=== PATIENT | female | born 1965 | race Caucasian/White ===

== ENCOUNTER 2017-08-14 02:22 | Emergency (ER) | payer OTHER ==
--- NOTE | 2017-08-14 02:50 | ERPHSYRPT ---
- History of Present Illness Source: patient Exam Limitations: no limitations Patient Subjective Stated Complaint: Pt arrives to ER escorted by Police with c/ o self-inflicted laceration to left wrist in an attempt to harm herself although states is not currently suicidal or homicidal. Pt admits to drinking 3 beers tonight. denies drug use. pt is currently laughing and joking with staff and officer and does not appear to be in any distress at this time. wrist dressed with gauze wrap. Triage Nursing Assessment: see above Timing/Duration: today (1:30 AM) Severity: moderate Modifying Factors: Improves With: nothing Associated Symptoms: rash, No nausea, No vomiting, No abdominal pain, No shortness of breath, No heartburn, No diaphoresis, No cough, No chills, No chest pain, No fever, No headaches, No loss of appetite, No malaise, No syncope , No seizure, No weakness Hx Tetanus, Diphtheria Vaccination/Date Given: No <YOANDY BOWMAN - Last Filed: 08/14/17 07:04> <EAN WATERMAN - Last Filed: 08/14/17 13:35> - History of Present Illness Time Seen by Provider: 08/14/17 02:59 Physician History: This is a 52-year-old white female arrives with complaint of laceration to her left wrist at approximately 1:30 PM. According to the patient she decided she wanted to harm herself at about 1:30 PM and so she lacerated her left wrist. Patient states that she has had 3 alcoholic beverages tonight she denies any illicit drug use She states she is not feeling homicidal or suicidal at this time. Past medical history includes depression Past surgical history includes tonsillectomy Social history includes tobacco use patient states she usually doesn't drink but drank 3 beers tonight Patient denies illicit drug use. (YOANDY BOWMAN) Allergies/Adverse Reactions: No Known Drug Allergies Allergy (Unverified 08/14/17 02:38) Home Medications: Albuterol Sulfate [Ventolin Hfa] 2 puffs OINH Q4H PRN 08/14/17 [History] Alendronate Sodium 70 mg [Fosamax 70 MG] 70 mg PO DAILY 08/14/17 [History] Atorvastatin Calcium [Lipitor 40Mg] 40 mg PO DAILY 08/14/17 [History] Calcium Carbonate/Vitamin D3 [Calcium 600 + Vit D 400 Tablet] 1 dose PO DAILY [History] Cyanocobalamin (Vitamin B-12) [Vitamin B12] 5,000 mg PO DAILY 08/14/17 [History] Eszopiclone [Lunesta] 3 mg PO DAILY 08/14/17 [History] Hydroxyzine Pamoate [Vistaril] 50 mg PO DAILY 08/14/17 [History] Lisinopril [Prinivil] 10 mg PO DAILY 08/14/17 [History] Omeprazole [Prilosec] 40 mg PO DAILY 08/14/17 [History] Prazosin HCl [Minipress] 1 mg PO DAILY 08/14/17 [History] Venlafaxine HCl ER 37.5 mg [Effexor ER 37.5 MG] 37.5 mg PO DAILY 08/14/17 [History] Venlafaxine HCl [Effexor Xr] 75 mg PO DAILY 08/14/17 [History] - Review of Systems Constitutional: No Fever, No Chills Eyes: No Symptoms Ears, Nose, & Throat: No Symptoms Respiratory: No Cough, No Dyspnea Cardiac: No Chest Pain, No Edema, No Syncope Abdominal/Gastrointestinal: No Abdominal Pain, No Nausea, No Vomiting, No Diarrhea Genitourinary Symptoms: No Dysuria Musculoskeletal: No Back Pain, No Neck Pain Skin: Other (laceration left wrist self-inflicted) Neurological: No Dizziness, No Focal Weakness, No Sensory Changes Psychological: No Symptoms Endocrine: No Symptoms All Other Systems: Reviewed and Negative <YOANDY BOWMAN - Last Filed: 08/14/17 07:04> - Past Medical History Pertinent Past Medical History: Yes Psycho-Social History: Depression - Past Surgical History Past Surgical History: Yes - Social History Smoking Status: Current every day smoker Exposure to second hand smoke: Yes Drug Use: none Patient Lives Alone: No - Female History Hx Now: No <YOANDY BOWMAN - Last Filed: 08/14/17 07:04> - Physical Exam General Appearance: other (well-developed well-nourished white female alert, oriented x 3, pleasant and cooperative to examination occasionally laughing inappropriately) Eye Exam: PERRL/EOMI, eyes nml inspection Ears, Nose, Throat Exam: normal ENT inspection, TMs normal, pharynx normal, moist mucous membranes Neck Exam: normal inspection, non-tender, supple, full range of motion Respiratory Exam: normal breath sounds, lungs clear, No respiratory distress Cardiovascular Exam: regular rate/rhythm, normal heart sounds, normal peripheral pulses Gastrointestinal/Abdomen Exam: soft, normal bowel sounds, No tenderness, No mass Back Exam: normal inspection, normal range of motion, No CVA tenderness, No vertebral tenderness Extremity Exam: normal range of motion, other (laceration left anterior wrist) Neurologic Exam: alert, oriented x 3, cooperative, normal mood/affect, nml cerebellar function, nml station & gait, sensation nml, No motor deficits Skin Exam: other (laceration left anterior wrist 1.5 cm) SpO2 Interpretation: normal (96%) SpO2: 96 Oxygen Delivery: Room Air <YONADY BOWMAN - Janes Filed: 08/14/17 07:04> - Nursing Vital Signs Nursing Vital Signs: Initial Vital Signs Temperature 97.4 F 08/14/17 02:29 Pulse Rate 87 08/14/17 02:29 Respiratory Rate 18 08/14/17 02:29 Blood Pressure 132/77 08/14/17 02:29 O2 Sat by Pulse Oximetry 96 08/14/17 02:29 Pain Scale Pain Intensity 0 - Course Nursing assessment & vital signs reviewed: Yes EKG Interpreted by Me: RATE (69 bpm), Sinus Rhythm, Other (EKG, sinus rhythm, 69 bpm, axisSI/QIII pattern, poor anterior R-wave progression, no acute ST or t wave changes noted>) <YOANDY BOWMAN Filed: 08/14/17 07:04> Ordered Tests: Active Orders 24 hr Category Date Time Status EKG-ER Only STAT Care 08/14/17 02:45 Active IV Insertion STAT Care 08/14/17 04:10 Active Psychiatric Evaluation STAT Care 08/14/17 03:28 Active Wound Care STAT Care 08/14/17 02:52 Active Regular Diet Diet 08/14/17 Breakfast Active Regular Diet Diet 08/14/17 Lunch Active ACETAMINOPHEN Stat Lab 08/14/17 03:32 Completed ACETAMINOPHEN Stat Lab 08/14/17 06:29 Completed Alcohol [ETHYL ALCOHOL] Stat Lab 08/14/17 10:59 Completed CBC W DIFF Stat Lab 08/14/17 03:32 Completed CMP Stat Lab 08/14/17 03:32 Completed ETHYL ALCOHOL Stat Lab 08/14/17 03:32 Completed ETHYL ALCOHOL Stat Lab 08/14/17 06:29 Completed HCG QUALITATIVE,SERUM Stat Lab 08/14/17 03:32 Completed Manual Differential NC Stat Lab 08/14/17 03:32 Completed SALICYLATE Stat Lab 08/14/17 03:32 Completed SALICYLATE Stat Lab 08/14/17 06:29 Completed UA W/RFX UR CULTURE Stat Lab 08/14/17 04:42 Completed Urine Triage Profile Stat Lab 08/14/17 04:42 Completed Medication Summary Discontinued Medications Generic Name Dose Route Start Last Admin Trade Name Freq PRN Reason Stop Dose Admin Diphtheria/Tetanus/Acell Pertussis 0.5 ml 08/14/17 02:53 08/14/17 03:23 Adacel Vial IM 08/14/17 02:54 0.5 ml .ONCE ONE Administration Diphtheria/Tetanus/Acell Pertussis Confirm 08/14/17 03:19 Adacel Vial Administered 08/14/17 03:20 Dose 0.5 ml IM .STK-MED ONE Sodium Chloride 1,000 mls @ 999 mls/hr 08/14/17 04:06 08/14/17 06:07 Sodium Chloride 0.9% 1000 Ml IV 08/14/17 05:06 Infused .Q1H1M STA Infusion Sodium Chloride Confirm 08/14/17 04:08 Sodium Chloride 0.9% 1000 Ml Administered 08/14/17 04:09 Dose 1,000 mls @ ud .ROUTE .STK-MED ONE Nicotine 21 mg 08/14/17 04:07 08/14/17 04:13 Nicoderm Cq 21 Mg TOP 08/14/17 04:08 21 mg STAT ONE Administration Pantoprazole Sodium 40 mg 08/14/17 10:26 08/14/17 10:35 Protonix 40mg Tablet PO 08/14/17 10:27 40 mg STAT ONE Administration Pantoprazole Sodium Confirm 08/14/17 10:33 Protonix 40mg Tablet Administered 08/14/17 10:34 Dose 40 mg .ROUTE .STK-MED ONE Lab/Rad Data: Laboratory Result Diagrams 08/14/17 03:32 08/14/17 03:32 Laboratory Results 08/14/17 08/14/17 08/14/17 Range/Units 10:59 06:29 04:42 WBC (4.0-10.5) K/mm3 RBC (4.1-5.4) M/mm3 Hgb (12.0-16.0) gm/dl Hct (35-47) % MCV (78-100) fl MCH (26-32) pg MCHC (32-36) g/dl RDW (11.5-14.0) % Plt Count (150-450) K/mm3 MPV (6-9.5) fl Absolute Granulocytes (1.4-6.9) Segmented Neutrophils (36.0-66.0) % Band Neutrophils (0.0-2.0) % Lymphocytes (Manual) (24-44) % Monocytes (Manual) (0.0-12.0) % Eosinophils (Manual) (0.00-3.0) % Platelet Estimate (NORMAL) RBC Morphology Sodium (137-145) mmol/L Potassium (3.5-5.1) mmol/L Chloride (98-107) mmol/L Carbon Dioxide (22-30) mmol/L Anion Gap (5-15) MEQ/L BUN (7-17) mg/dL Creatinine (0.52-1.04) mg/dL Estimated GFR ML/MIN Glucose (74-106) mg/dL Calcium (8.4-10.2) mg/dL Total Bilirubin (0.2-1.3) mg/dL AST (14-36) U/L ALT (0-35) U/L Alkaline Phosphatase (38-126) U/L Serum Total Protein (6.3-8.2) g/dL Albumin (3.5-5.0) g/dL Serum , Qual (Negative) Ur Collection Type Urine Color (YELLOW) Urine Appearance (CLEAR) Urine pH (5-6) Ur Specific Mcnary (1.005-1.025) Urine Protein (Negative) Urine Ketones (NEGATIVE) Urine Blood (0-5) Juan/ul Urine Nitrite (NEGATIVE) Urine Bilirubin (NEGATIVE) Urine Urobilinogen (0-1) mg/dL Ur Leukocyte Esterase (NEGATIVE) Urine Culture Reflexed (NO) Urine Glucose (NEGATIVE) mg/dL Salicylates 15.5 (2-20) mg/dL Urine Opiates Level NEGATIVE (NEGATIVE) Ur Methadone NEGATIVE (NEGATIVE) Acetaminophen < 10 L (10-30) ug/ml Urine Barbiturates NEGATIVE (NEGATIVE) Ur Phencyclidine (PCP) NEGATIVE (NEGATIVE) Urine Amphetamine NEGATIVE (NEGATIVE) U Benzodiazepine Level NEGATIVE (NEGATIVE) Urine Cocaine NEGATIVE (NEGATIVE) Urine Marijuana (THC) NEGATIVE (NEGATIVE) Ethyl Alcohol < 10 93 H (0-10) mg/dL Specimen Received 08/14/17 08/14/17 08/14/17 Range/Units 04:42 03:32 03:32 WBC (4.0-10.5) K/mm3 RBC (4.1-5.4) M/mm3 Hgb (12.0-16.0) gm/dl Hct (35-47) % MCV (78-100) fl MCH (26-32) pg MCHC (32-36) g/dl RDW (11.5-14.0) % Plt Count (150-450) K/mm3 MPV (6-9.5) fl Absolute Granulocytes (1.4-6.9) Segmented Neutrophils (36.0-66.0) % Band Neutrophils (0.0-2.0) % Lymphocytes (Manual) (24-44) % Monocytes (Manual) (0.0-12.0) % Eosinophils (Manual) (0.00-3.0) % Platelet Estimate (NORMAL) RBC Morphology Sodium 144 (137-145) mmol/L Potassium 3.6 (3.5-5.1) mmol/L Chloride 107 (98-107) mmol/L Carbon Dioxide 20 L (22-30) mmol/L Anion Gap 20.9 H (5-15) MEQ/L BUN 14 (7-17) mg/dL Creatinine 0.66 (0.52-1.04) mg/dL Estimated GFR > 60.0 ML/MIN Glucose 111 H (74-106) mg/dL Calcium 9.3 (8.4-10.2) mg/dL Total Bilirubin 0.20 (0.2-1.3) mg/dL AST 17 (14-36) U/L ALT 13 (0-35) U/L Alkaline Phosphatase 66 (38-126) U/L Serum Total Protein 7.5 (6.3-8.2) g/dL Albumin 4.6 (3.5-5.0) g/dL Serum , Qual NEGATIVE (Negative) Ur Collection Type VOID Urine Color LT.YELLOW (YELLOW) Urine Appearance CLEAR (CLEAR) Urine pH 5.0 (5-6) Ur Specific Mcnary 1.010 (1.005-1.025) Urine Protein NEGATIVE (Negative) Urine Ketones NEGATIVE (NEGATIVE) Urine Blood NEGATIVE (0-5) Juan/ul Urine Nitrite NEGATIVE (NEGATIVE) Urine Bilirubin NEGATIVE (NEGATIVE) Urine Urobilinogen NORMAL (0-1) mg/dL Ur Leukocyte Esterase NEGATIVE (NEGATIVE) Urine Culture Reflexed NO (NO) Urine Glucose NEGATIVE (NEGATIVE) mg/dL Salicylates 18.0 (2-20) mg/dL Urine Opiates Level (NEGATIVE) Ur Methadone (NEGATIVE) Acetaminophen 19 (10-30) ug/ml Urine Barbiturates (NEGATIVE) Ur Phencyclidine (PCP) (NEGATIVE) Urine Amphetamine (NEGATIVE) U Benzodiazepine Level (NEGATIVE) Urine Cocaine (NEGATIVE) Urine Marijuana (THC) (NEGATIVE) Ethyl Alcohol 161 H (0-10) mg/dL Specimen Received 08/14/17 0445 08/14/17 Range/Units 03:32 WBC 15.6 H (4.0-10.5) K/mm3 RBC 3.86 L (4.1-5.4) M/mm3 Hgb 12.4 (12.0-16.0) gm/dl Hct 36.7 (35-47) % MCV 95.1 (78-100) fl MCH 32.1 H (26-32) pg MCHC 33.8 (32-36) g/dl RDW 14.6 H (11.5-14.0) % Plt Count 534 H (150-450) K/mm3 MPV 9.1 (6-9.5) fl Absolute Granulocytes 8.37 H (1.4-6.9) Segmented Neutrophils 60 (36.0-66.0) % Band Neutrophils 1 (0.0-2.0) % Lymphocytes (Manual) 35 (24-44) % Monocytes (Manual) 3 (0.0-12.0) % Eosinophils (Manual) 1 (0.00-3.0) % Platelet Estimate NORMAL (NORMAL) RBC Morphology NORMAL Sodium (137-145) mmol/L Potassium (3.5-5.1) mmol/L Chloride (98-107) mmol/L Carbon Dioxide (22-30) mmol/L Anion Gap (5-15) MEQ/L BUN (7-17) mg/dL Creatinine (0.52-1.04) mg/dL Estimated GFR ML/MIN Glucose (74-106) mg/dL Calcium (8.4-10.2) mg/dL Total Bilirubin (0.2-1.3) mg/dL AST (14-36) U/L ALT (0-35) U/L Alkaline Phosphatase (38-126) U/L Serum Total Protein (6.3-8.2) g/dL Albumin (3.5-5.0) g/dL Serum , Qual (Negative) Ur Collection Type Urine Color (YELLOW) Urine Appearance (CLEAR) Urine pH (5-6) Ur Specific Mcnary (1.005-1.025) Urine Protein (Negative) Urine Ketones (NEGATIVE) Urine Blood (0-5) Juan/ul Urine Nitrite (NEGATIVE) Urine Bilirubin (NEGATIVE) Urine Urobilinogen (0-1) mg/dL Ur Leukocyte Esterase (NEGATIVE) Urine Culture Reflexed (NO) Urine Glucose (NEGATIVE) mg/dL Salicylates (2-20) mg/dL Urine Opiates Level (NEGATIVE) Ur Methadone (NEGATIVE) Acetaminophen (10-30) ug/ml Urine Barbiturates (NEGATIVE) Ur Phencyclidine (PCP) (NEGATIVE) Urine Amphetamine (NEGATIVE) U Benzodiazepine Level (NEGATIVE) Urine Cocaine (NEGATIVE) Urine Marijuana (THC) (NEGATIVE) Ethyl Alcohol (0-10) mg/dL Specimen Received - Progress Progress: improved <YOANDY BOWMAN - Last Filed: 08/14/17 07:04> <EAN WATERMAN - Last Filed: 08/14/17 13:35> - Progress Progress Note: 08/14/17 03:25 52-year-old white female brought by police with complaint of self-inflicted laceration to left wrist at approximately 1:30 AM this morning. Patient states that she felt like harming herself so she decided to cut her wrist. Patient states she does not feel like harming herself now denies suicidal ideation she does have a history of depression. On arrival patient is alert oriented pleasant cooperative to examination she has full range of motion to all extremities she has a 1.5 cm laceration to the left anterior wrist. Patient does appear to be laughing quite frequently. She admits to drinking 3 beers she denies any alcohol use. Laceration left wrist is sterilely prepped by the nurses and repaired by the patient's nurse with Dermabond patient has full range of motion to all fingers good capillary refill to all fingers sensation intact to all fingers. Appropriate laboratory studies including CBC CMP salicylate acetaminophen UDS UA , EKG have been ordered.blood alcohol has been ordered. Anticipate psych consult. 08/14/17 06:12 Patient is stable at this time. Awaiting consult from [facility]. Repeat EtOH level ordered. 4 hour acetaminophen and salicylate level ordered. 08/14/17 07:02 Still awaiting psychiatric consult. Patient's EtOH level now 0.093. Acetaminophen level less than 10. Salicylate level 15 which is down from prior 18. Patient in no distress and quite cooperative. Case will be transferred to Dr. Waterman secondary to shift change. (YOANDY BOWMAN) <YOANDY BOWMAN - Last Filed: 08/14/17 07:04> - Departure Time of Disposition: 13:34 Departure Disposition: Transfer Critical Care Time: No <EAN WATERMAN - Last Filed: 08/14/17 13:35> - Departure Clinical Impression: Suicidal behavior Qualifiers: Attempted self-injury: with attempted self-injury Qualified Code(s): T14.91XA - Suicide attempt, initial encounter Condition: Stable Referrals: Provider,Unknown [Primary Care Provider] -
[2017-08-14] MEDS ORDERED: Adacel Vial IM ONE ×2 (02:53→03:19)
[2017-08-14 03:53] LABS: ACETAMINOPHEN 19 ug/ml (10-30); ALBUMIN 4.6 g/dL (3.5-5.0); ALKALINE PHOSPHATASE 66 U/L (38-126); ANION GAP 20.9 MEQ/L (5-15); BLOOD UREA NITROGEN 14 mg/dL (7-17); CHLORIDE 107 mmol/L (98-107); Calcium 9.3 mg/dL (8.4-10.2); Carbon Dioxide 20 mmol/L (22-30); Creatinine 1 0.66 mg/dL (0.52-1.04); ETHYL ALCOHOL 161 mg/dL (0-10); Glucose 111 mg/dL (74-106); Potassium 3.6 mmol/L (3.5-5.1); SGOT/AST 17 U/L (14-36); SGPT/ALT 13 U/L (0-35); SODIUM 144 mmol/L (137-145); Total Protein 7.5 g/dL (6.3-8.2)
[2017-08-14 03:58] LABS: Granulocyte Absolute (ANC) 8.37 (1.4-6.9); Hematocrit 36.7 % (35-47); Hemoglobin 12.4 gm/dl (12.0-16.0); Mean Cell Volume 95.1 fl (78-100); Mean Corpuscular Hemoglobin 32.1 pg (26-32); Mean Corpuscular Hgb Concent. 33.8 g/dl (32-36); Mean Platelet Volume 9.1 fl (6-9.5); Platelet Count 534 K/mm3 (150-450); Red Blood Count 3.86 M/mm3 (4.1-5.4); Red Cell Distribution Width 14.6 % (11.5-14.0); White Blood Count 15.6 K/mm3 (4.0-10.5)
[2017-08-14] MEDS ORDERED: Sodium Chloride 0.9% 1000 ML 1,000 ML IV STA (04:06)
[2017-08-14] MEDS ORDERED: Nicoderm CQ 21 MG TOP ONE (04:07)
[2017-08-14] MEDS ORDERED: Sodium Chloride 0.9% 1000 ML 1,000 ML ONE (04:08)
[2017-08-14 04:45] LABS: Appearance CLEAR (CLEAR); Bilirubin NEGATIVE (NEGATIVE); Blood NEGATIVE Ery/ul (0-5); Glucose NEGATIVE (NEGATIVE); Ketones NEGATIVE (NEGATIVE); Leukocyte Esterase NEGATIVE (NEGATIVE); Nitrite NEGATIVE (NEGATIVE); Protein,Urine Dip NEGATIVE (Negative); Urobilinogen NORMAL mg/dL (0-1)
[2017-08-14 04:49] LABS: BAND 1 % (0.0-2.0); Eosinophil 1 % (0.00-3.0); Lymphocytes 35 % (24-44); Monocyte 3 % (0.0-12.0); Neutrophils 60 % (36.0-66.0); Total Cells Counted 100
[2017-08-14 04:50] LABS: Platelet Estimate NORMAL (NORMAL)
[2017-08-14 05:01] LABS: Amphetamine,Urine NEGATIVE (NEGATIVE); Barbiturate,Urine NEGATIVE (NEGATIVE); Benzodiazepine,Urine NEGATIVE (NEGATIVE); Cocaine,Urine NEGATIVE (NEGATIVE); Methadone,Urine NEGATIVE (NEGATIVE); Opiate,Urine NEGATIVE (NEGATIVE); PCP,Urine NEGATIVE (NEGATIVE); THC,Urine NEGATIVE (NEGATIVE)
[2017-08-14 06:49] LABS: ETHYL ALCOHOL 93 mg/dL (0-10); SALICYLATE 15.5 mg/dL (2-20)
[2017-08-14 06:50] LABS: ACETAMINOPHEN < 10 ug/ml (10-30)
[2017-08-14] MEDS ORDERED: Protonix 40MG Tablet PO ONE (10:26)
[2017-08-14] MEDS ORDERED: Protonix 40MG Tablet ONE (10:33)
[2017-08-14 13:23] VITALS: BP 140/83; PULSE 87
[2017-08-14 13:40] VITALS: O2SAT 16
== END 2017-08-14 14:19 ==
LOC: ED 02:22
PROC: 0HQGXZZ Repair Left Hand Skin, External Approach (ICD-10-PCS; principal; 2017-08-14)
DX: S61.512A Laceration without foreign body of left wrist, initial encounter (principal); X78.9XXA Intentional self-harm by unspecified sharp object, initial encounter; Z79.899 Other long term (current) drug therapy
CPT/HCPCS: 12001; 36000; 36415; 80053; 80307; 81002; 84703; 85025; 90791; 93005; 96360; 99285; G0481; 90471; 90715; Q3014; A9270-GY; G0480